=== PATIENT | female | born 1995 | race African-American/Black ===

== ENCOUNTER 2019-01-02 18:22 | Emergency (ER) | payer MEDICAID ==
[~2019-01-02] VITALS: Ht 157.5 cm; Wt 53.5 kg
[~2019-01-02 18:22] MED LIST: ALBUTEROL SULF8.5 GM INH; PREDNISONE20 MG ORAL; TESSALON PERLE100 MG ORAL; VENTOLIN HFA18 GM INH; ZOFRAN4 M3 ORAL
[2019-01-02] MEDS ORDERED: EXCEDRIN EXTRA1 EAC1 PO (18:35)
[2019-01-02 18:45] VITALS: BP 110/74
--- NOTE | 2019-01-02 18:45 | NUR ---
ED Nurse Note: pt walked in due to right knee pain. pt stated its been there for a while and started hurting 5 days ago, denies trauma. no deformity noted.
--- NOTE | 2019-01-02 18:59 | NUR ---
ED Nurse Note: report received from ROBINSON Foy. pt being seen by ERMD at bedside at this time.
[2019-01-02] MEDS ORDERED: Ketorolac 30mg Inj IM ONE (19:00)
[2019-01-02] MEDS ORDERED: Ketorolac 30mg Inj ONE (19:01)
--- NOTE | 2019-01-02 19:05 | Emergency Room Report ---
History of Present Illness General Chief Complaint: Pain Source: Patient Present Illness HPI Disclaimer: Please note that this report is being documented using DRAGON technology. This can lead to erroneous entry secondary to incorrect interpretation by the dictating instrument. HPI: 23-year-old female with a history of asthma presents for evaluation of right knee pain. Patient states she has been having aching over the anterior and lateral surface of the knee without significant swelling for the past 5 days. Cannot recall specific injury. 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 She notes a throbbing and sometimes pain radiating down the right leg. Denies any unilateral weakness, paresthesias, numbness. 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 She is been wearing a knee brace without significant improvement. Has not yet tried anti-inflammatories or pain relieving medications. Denies overlying skin redness, bruising, breakdown. Denies recent illness including fever, chills, cough, dysuria, hematuria, vaginal discharge, vaginal bleeding, abdominal pain or diarrheal illness. PMH: Asthma PSH: None Allergies: Penicillin Social Hx: Occasional THC use, denies cigarettes, occasional alcohol use Allergies: Coded Allergies: ASPIRIN (Verified Allergy, Unknown, 09/22/18) PENICILLINS (Verified Allergy, Unknown, 09/22/18) Uncoded Allergies: CITRUS (Allergy, Unknown, 09/22/18) Patient History Last Menstrual Period: nov Now: No Nursing Documentation-PMH Hx Asthma: Yes Review of Systems All Other Systems: negative except mentioned in HPI Physical Exam Vital Signs Date Time Temp Pulse Resp B/P (MAP) Pulse Ox O2 Delivery O2 Flow Rate FiO2 01/02/19 18:32 99.1 75 16 110/74 (86) 99 Room Air General: Awake and alert, no acute distress, afebrile HEENT: NC/AT. EOMI. Resp: Normal work of breathing. Skin: Intact. No abrasions, laceration or rash over the exposed skin MSK: Normal tone and bulk. Moving all extremities. No obvious deformity. No tenderness over the patella of the right knee. No surrounding edema, no erythema. There is tenderness over the patellar tendon and the tibial tuberosity. No joint instability on varus and valgus manipulation. No laxity on anterior posterior manipulation. 2+ PT pulses bilaterally. Good capillary refill. Left lower extremity is atraumatic, nontender, full range of motion. Neuro: Awake and alert. Mentating appropriately. Sensation intact over the dermatomes of lower extremities. Medical Decision Making Diagnostic Impression: Primary Impression: Right knee pain ER Course 23-year-old female presenting for evaluation of 5 days worsening atraumatic right knee pain. Differential includes but is not limited to occult fracture, bone spurs, osteoarthritis, tendinitis, bursitis, crystal arthropathy, septic joint. Patient does not have any signs or symptoms of infection and on clinical exam her and her physical and history are less consistent with a crystal arthropathy. Osteoarthritis is most likely given her history of competitive track with repetitive knee injuries and given that she is ambulatory most of the day at work. Will obtain an x-ray to rule out occult fracture. Patient be treated with Toradol. Other X-Ray Diagnostic Results Other X-Ray Diagnostic Results : X-Ray ordered: Right knee # of Views/Limited Vs Complete: 3 View Indication: Pain EP Interpretation: Yes Interpretation: no dislocation, no soft tissue swelling, no fractures, other Impression: No acute disease Electronically Signed by: Electronically signed by Dr. Javed Iyer Last Vital Signs Date Time Temp Pulse Resp B/P (MAP) Pulse Ox O2 Delivery O2 Flow Rate FiO2 01/02/19 18:45 99.1 75 16 110/74 99 Room Air Status: improved Reevaluation Impression X-ray shows no fracture or dislocation. Patient will be placed in a knee brace and provided with crutches. She will rest for several days and will provide a work note. Otherwise, she will use NSAIDs and follow-up with PMD. We discussed reasons to return to the emergency department. She understands and agrees with this treatment plan will be discharged home. Disposition: HOME, SELF-CARE Condition: Stable Scripts Acetaminophen* (ACETAMINOPHEN 325MG TABLET*) 325 Mg Tablet 650 MG ORAL Q6H PRN for For Pain for 10 Days, #40 TAB Prov: Javed Iyer MD 01/02/19 Ibuprofen* (MOTRIN*) 600 Mg Tablet 600 MG ORAL Q6HR PRN for For Pain, #30 TAB 0 Refills Prov: Javed Iyer MD 01/02/19 Javed Iyer MD Jan 02, 2019 19:05
--- NOTE | 2019-01-02 19:05 | NUR ---
ED Nurse Note: toradol IM given. x ray being performed at bedside.
[2019-01-02] MEDS ORDERED: IBUPROFEN600 MG ORAL (19:50)
[2019-01-02] MEDS ORDERED: ACETAMINOPHEN325 M1 ORAL (19:50)
[2019-01-02 19:56] VITALS: BP 118/71
--- NOTE | 2019-01-02 20:11 | NUR ---
ER DISCHARGE NOTE: Patient is cleared to be discharged per ERMD, pt is aox4, on room air, with stable vital signs. pt was given dc and prescription instructions, pt was able to verbalize understanding, pt id band removed without complications. pt is able to ambulate with right knee brace with crutches. pt took all belongings.
--- NOTE | 2019-01-03 14:10 | Diagnostic Imaging Report ---
Indications: Reason For Exam: PAIN Technique: Three views of the right knee Comparison: None Findings: No acute fractures. No dislocations. Joint spaces are preserved. No radiopaque foreign body. Normal mineralization. Impression: No acute process
== END 2019-01-02 19:58 | disposition home or self-care (01) ==
LOC: EMR 19:10
DX: M25.561 Pain in right knee (principal); J45.909 Unspecified asthma, uncomplicated; Z88.6 Allergy status to analgesic agent; Z88.0 Allergy status to penicillin; Z91.018 Allergy to other foods
CPT/HCPCS: 73562; 96372; 99283; J1885

== ENCOUNTER 2019-03-19 22:02 | Emergency (ER) | payer SELFPAY ==
[~2019-03-19] VITALS: Ht 157.5 cm; Wt 54.4 kg
[~2019-03-19 22:02] MED LIST changes: +ACETAMINOPHEN325 M1 ORAL; +EXCEDRIN EXTRA1 EAC1 PO; +IBUPROFEN600 MG ORAL
--- NOTE | 2019-03-19 22:15 | NUR ---
ED Nurse Note: Patient walked in to ER c/o headache since Monday. AAO x4, VSS at this time.
[2019-03-19 22:20] VITALS: BP 110/70
--- NOTE | 2019-03-19 22:29 | Emergency Room Report ---
History of Present Illness General Chief Complaint: Headache Source: Patient, Medical Record Present Illness HPI Disclaimer: Please note that this report is being documented using DRAGON technology. This can lead to erroneous entry secondary to incorrect interpretation by the dictating instrument. HPI: 24-year-old female with a history of asthma and migraine headaches presents for evaluation of headache and vomiting. Symptoms have been present greater than 1 week. She states it started during a URI for the patient had low -grade fevers, cough, nasal congestion sore throat. The symptoms improved however for the past 3 days she has had a worsening throbbing and profuse headache, photosensitivity, photosensitivity, nausea and vomiting without abdominal pain. Denies diarrhea, chest pain, cough. She states this is worse than her typical headaches though has the same character to it. She has been taking Excedrin without significant improvement. LMP was approximately 1 month ago and is due today. States she really gets bad migraines around her period. Does not follow-up regularly with neurology. Denies any seizure-like activity, recent head injury, changes in vision, numbness, tingling, weakness, confusion. PMH: Asthma, migraine headaches PSH: Denies Allergies: Penicillin, aspirin Social Hx: Denies tobacco use, occasional marijuana use, occasional alcohol use Allergies: Coded Allergies: ASPIRIN (Verified Allergy, Unknown, 09/22/18) PENICILLINS (Verified Allergy, Unknown, 09/22/18) Uncoded Allergies: CITRUS (Allergy, Unknown, 09/22/18) Patient History Last Menstrual Period: 02/20/19 Now: No Nursing Documentation-PMH Past Medical History: No History, Except For Hx Asthma: Yes Review of Systems All Other Systems: negative except mentioned in HPI Physical Exam Vital Signs Date Time Temp Pulse Resp B/P (MAP) Pulse Ox O2 Delivery O2 Flow Rate FiO2 03/19/19 22:07 98.6 83 16 110/70 (83) 98 General: Awake and alert, no acute distress HEENT: NC/AT. EOMI. PERRLA. Visual cisneros are full. No nystagmus. Facial expressions are symmetrical. No facial droop. Cardiovascular: RRR. S1 and S2 normal. No murmur appreciated Resp: Normal work of breathing. No cough, wheezing or crackles appreciated Abdomen: Abdomen is soft, nondistended. Nontender Skin: Intact. No abrasions, laceration or rash over the exposed skin MSK: Normal tone and bulk. Moving all extremities. No obvious deformity. There is no drift in the upper or lower extremities bilaterally. Neuro: Awake and alert. Mentating appropriately. Facial expression. Sensation to light touch is intact over the upper and lower extremities. The patient has intact speech with good repetition, comprehension. Fund of knowledge is full. No aphasia Medical Decision Making Diagnostic Impression: Primary Impression: Headache Additional Impression: Vomiting ER Course 24-year-old female presents for evaluation of 9 days headache and several days of nausea and vomiting. Her physical exam is nonfocal and overall she is well- appearing though appears to be in minor distress over the persistent headache. She states is consistent with her prior migraines and that this is a typical presentation that of her perimenstrual headache. We will obtain basic labs and give IV fluids for her recent vomiting to rule out organic causes but otherwise we will treat with migraine cocktail of IV fluids, Toradol, Reglan and Benadryl. If improved she can follow-up as an outpatient otherwise can advance work-up as needed Laboratory Tests Test 03/19/19 22:35 White Blood Count 7.0 K/UL (4.8-10.8) Red Blood Count 4.60 M/UL (4.20-5.40) Hemoglobin 13.1 G/DL (12.0-16.0) Hematocrit 39.3 % (37.0-47.0) Mean Corpuscular Volume 85 FL (80-99) Mean Corpuscular Hemoglobin 28.5 PG (27.0-31.0) Mean Corpuscular Hemoglobin Concent 33.4 G/DL (32.0-36.0) Red Cell Distribution Width 10.2 % (11.6-14.8) L Platelet Count 266 K/UL (150-450) Mean Platelet Volume 7.7 FL (6.5-10.1) Neutrophils (%) (Auto) 53.2 % (45.0-75.0) Lymphocytes (%) (Auto) 33.8 % (20.0-45.0) Monocytes (%) (Auto) 10.8 % (1.0-10.0) H Eosinophils (%) (Auto) 1.1 % (0.0-3.0) Basophils (%) (Auto) 1.1 % (0.0-2.0) Urine Color Pale yellow Urine Appearance Cloudy Urine pH 8 (4.5-8.0) Urine Specific Roark 1.010 (1.005-1.035) Urine Protein Negative (NEGATIVE) Urine Glucose (UA) Negative (NEGATIVE) Urine Ketones Negative (NEGATIVE) Urine Blood Negative (NEGATIVE) Urine Nitrite Negative (NEGATIVE) Urine Bilirubin Negative (NEGATIVE) Urine Urobilinogen Normal MG/DL (0.0-1.0) Urine Leukocyte Esterase 1+ (NEGATIVE) H Urine RBC 0-2 /HPF (0 - 2) Urine WBC 2-4 /HPF (0 - 2) Urine Squamous Epithelial Cells Moderate /LPF (NONE/OCC) H Urine Amorphous Sediment Many /LPF (NONE) H Urine Bacteria Moderate /HPF (NONE) H Urine HCG, Qualitative Negative (NEGATIVE) Sodium Level 137 MMOL/L (136-145) Potassium Level 3.8 MMOL/L (3.5-5.1) Chloride Level 100 MMOL/L (98-107) Carbon Dioxide Level 32 MMOL/L (21-32) Anion Gap 5 mmol/L (5-15) Blood Urea Nitrogen 14 mg/dL (7-18) Creatinine 0.8 MG/DL (0.55-1.30) Estimate Glomerular Filtration Rate > 60 mL/min (>60) Glucose Level 84 MG/DL (74-106) Calcium Level 8.8 MG/DL (8.5-10.1) Reevaluation Time: 00:10 Last Vital Signs Date Time Temp Pulse Resp B/P (MAP) Pulse Ox O2 Delivery O2 Flow Rate FiO2 03/19/19 22:07 98.6 83 16 110/70 (83) 98 Reevaluation Impression Labs have returned within normal limits. Questionable urinary tract infection of the patient is asymptomatic. Elected not to treat at this time. She is experiencing akathisia as a result of the Reglan. She was receiving Benadryl and Ativan and is now sleeping comfortably. She will be monitored in the emergency department. 0140: Patient's headache is now completely resolved. She is somnolent but arousable. Boyfriend is here to take her home. She would like to be discharged home to follow-up with her PMD as an outpatient. Discussed reasons to return to the emergency department. Also discussed that if she should tell her doctor that she had a reaction to Reglan and should not have it in the future. She understands and agrees with this treatment plan will be discharged home Disposition: HOME, SELF-CARE Condition: Improved Javed Iyer MD Mar 19, 2019 22:29
[2019-03-19] MEDS ORDERED: DiphenhydrAMINE 50mg/ml Inj IVP ONE ×2 (22:30→23:00)
[2019-03-19] MEDS ORDERED: Metoclopramide 10mg/2ml Inj IVP ONE (22:30)
[2019-03-19] MEDS ORDERED: Ketorolac 30mg Inj IV ONE (22:45)
[2019-03-19 22:50] LABS: BASOPHILS % (AUTO) 1.1 % (0.0-2.0); EOSINOPHILS % (AUTO) 1.1 % (0.0-3.0); HEMATOCRIT 39.3 % (37.0-47.0); HEMOGLOBIN 13.1 G/DL (12.0-16.0); LYMPHOCYTES % (AUTO) 33.8 % (20.0-45.0); MEAN CORPUSCULAR VOLUME 85 FL (80-99); MONOCYTES % (AUTO) 10.8 % (1.0-10.0); NEUTROPHILS % (AUTO) 53.2 % (45.0-75.0); PLATELET COUNT 266 K/UL (150-450); RED CELL DISTRIBUTION WIDTH 10.2 % (11.6-14.8)
[2019-03-19 22:53] LABS: APPEARANCE,URINE CLOUDY; BILIRUBIN, URINE NEGATIVE (NEGATIVE); COLOR,URINE PALE YELLOW; GLUCOSE, URINE (UA) NEGATIVE (NEGATIVE); KETONES,URINE NEGATIVE (NEGATIVE); LEUKOCYTE ESTERASE ,URINE 1+ (NEGATIVE); NITRITE,URINE NEGATIVE (NEGATIVE); PH,URINE 8 (4.5-8.0); PROTEIN,URINE NEGATIVE (NEGATIVE); UROBILINOGEN,URINE NORMAL MG/DL (0.0-1.0)
[2019-03-19] MEDS ORDERED: DiphenhydrAMINE 50mg/ml Inj ONE (23:02)
[2019-03-19] MEDS ORDERED: LORazepam Inj 2mg/ml 1ml IV ONE (23:15)
[2019-03-19 23:20] LABS: ANION GAP 5 mmol/L (5-15); BLOOD UREA NITROGEN 14 mg/dL (7-18); CALCIUM 8.8 MG/DL (8.5-10.1); CARBON DIOXIDE 32 MMOL/L (21-32); CHLORIDE 100 MMOL/L (98-107); CREATININE 0.8 MG/DL (0.55-1.30); POTASSIUM 3.8 MMOL/L (3.5-5.1); SODIUM 137 MMOL/L (136-145)
[2019-03-20 01:54] VITALS: BP 110/70
--- NOTE | 2019-03-20 01:58 | NUR ---
ED Nurse Note: Pt cleared by health care Provider for discharge. DC instructions/prescription was given and explained to pt and verbalized understanding of teachings. All medical deviecs such as ID band removed. Pt is AAO x4, ambulatory and left with all personal belongings.
== END 2019-03-20 01:59 | disposition home or self-care (01) ==
LOC: EMR 22:22
DX: R51 Headache (principal); R11.10 Vomiting, unspecified; J45.909 Unspecified asthma, uncomplicated; Z88.6 Allergy status to analgesic agent; Z88.0 Allergy status to penicillin; Z91.018 Allergy to other foods
CPT/HCPCS: 36415; 80048; 81003; 81025; 85025; 87086; 96361; 96374; 96375; 99284; J1200; J1885; J2765; J7030